=== PATIENT | male | born 1990 | race Hispanic/Latino ===

== ENCOUNTER 2016-11-28 21:08 | Emergency (ER) | payer OTHER ==
[~2016-11-28] VITALS: Ht 167.6 cm; Wt 99.8 kg
[2016-11-28] MEDS ORDERED: ADVI200C PO (21:27)
[2016-11-28] MEDS ORDERED: KLON0.5T PO (22:35)
[2016-11-28 22:46] VITALS: BP 130/82
== END 2016-11-28 23:00 | disposition home or self-care (01) ==
LOC: EDBD 21:08 → M ED 22:24
DX: F41.9 Anxiety disorder, unspecified (principal)

== ENCOUNTER 2016-12-12 09:34 | Emergency (ER) | payer OTHER ==
[~2016-12-12] VITALS: Ht 167.6 cm; Wt 102.1 kg
[~2016-12-12 09:34] MED LIST: ADVI200C PO; KLON0.5T PO
[2016-12-12] MEDS ORDERED: NAPR500T2 PO (09:42)
[2016-12-12] MEDS ORDERED: KETOROLAC 30 MG/ML VIAL (J1885) IV ONE (10:30)
[2016-12-12] MEDS ORDERED: GASTROGRAFIN SOLUTION 30ML (Q9963) As Ordered ONE (10:34)
[2016-12-12 10:39] LABS: BASO # 0.1 K/mm3 (0.0-0.2); BASO % 0.9 % (0.0-1.0); EOS # 0.1 K/mm3 (0.0-0.50); EOS % 1.6 % (0.0-3.0); LARGE UNSTAINED CELL # 0.1 K/mm3 (0.0-0.4); LARGE UNSTAINED CELL % 0.9 % (0.0-4.0); LYMPH # 2.2 K/mm3 (1.5-6.5); LYMPH % 29.9 % (24.0-44.0); MEAN CORPUSCULAR HEMOGLOBIN 30.6 pg (27.0-33.0); MEAN CORPUSCULAR HGB CONC 34.5 g/dl (32.0-36.5); MEAN CORPUSCULAR VOLUME 88.9 fl (80.0-96.0); MONO # 0.3 K/mm3 (0.0-0.8); MONO % 4.3 % (0.0-5.0); NEUTROPHILS # 4.5 K/mm3 (1.8-7.7); NEUTROPHILS % 62.4 % (36.0-66.0); PLATELET COUNT, AUTOMATED 167 k/mm3 (150-450); RED CELL DISTRIBUTION WIDTH 12.8 % (11.5-14.5); WHITE BLOOD COUNT 7.2 K/mm3 (4.0-10.0)
[2016-12-12] MEDS ORDERED: GASTROGRAFIN SOLUTION 30ML PO ONE (10:45)
[2016-12-12 10:57] LABS: ANION GAP 8 MEQ/L (8-16); BLOOD UREA NITROGEN 14 MG/DL (7-18); CALCIUM LEVEL 9.1 MG/DL (8.5-10.1); CARBON DIOXIDE LEVEL 27 MEQ/L (21-32); CHLORIDE LEVEL 105 MEQ/L (98-107); CREATININE FOR GFR 0.91 MG/DL (0.70-1.30); GLOMERULAR FILTRATION RATE > 60.0 (>60); GLUCOSE, FASTING 95 MG/DL (70-105); SODIUM LEVEL 140 MEQ/L (136-145)
[2016-12-12] MEDS ORDERED: GASTROGRAFIN SOLUTION 30ML (Q9963) PO ONE (11:15)
[2016-12-12] MEDS ORDERED: ISOVUE-370 76% 100ML VIAL (Q9967) As Ordered ONE (11:59)
--- NOTE | 2016-12-12 12:27 | REP ---
Clinical: Right inguinal hernia. Technique: Axial contrast enhanced images from the lung bases to the pubic symphysis using oral and 100 ml Isovue 370 intravenous contrast material with coronal and sagittal re-formations. Findings: Lung bases are clear. Visualized heart and pericardium are normal. Liver, spleen, pancreas, gallbladder, bilateral adrenal glands and kidneys are normal. The enteric system is without obstruction or acute inflammatory process normal terminal ileum and appendix identified in the right lower quadrant. Pelvis demonstrates normal bladder and prostate/seminal vesicles. A 1 cm fat containing periumbilical hernia is identified. No inguinal hernia noted. No ascites. No free air. No intraperitoneal or retroperitoneal adenopathy. No mass lesion. Vascular structures are normal. Musculoskeletal structures are intact. Impression: 1 cm fat containing periumbilical hernia. No inguinal hernia identified. No acute intra-abdominal or pelvic pathology appreciated. Signed by Terrance Banda MD 12/12/2016 12:18 P
[2016-12-12 13:51] VITALS: BP 127/76
== END 2016-12-12 13:53 | disposition home or self-care (01) ==
LOC: EDBD 09:34 → M ED 11:05
DX: K42.9 Umbilical hernia without obstruction or gangrene (principal); F41.9 Anxiety disorder, unspecified
CPT/HCPCS: 74177; 80048; 83605; 85025; 96374; 99283; J1885; Q9963; Q9967

== ENCOUNTER 2016-12-29 23:17 | Emergency (ER) | payer OTHER ==
[~2016-12-29] VITALS: Ht 167.6 cm; Wt 99.8 kg
[2016-12-29 23:17] VITALS: BP 141/96
[~2016-12-29 23:17] MED LIST changes: +NAPR500T2 PO
[2016-12-30] MEDS ORDERED: NS 1,000 ML IV ONE (00:15)
[2016-12-30] MEDS ORDERED: GI COCKTAIL 50ML BTL(HYOSCYAMINE/MAALOX/LIDOCAINE VISCOUS)(1:3:1) PO ONE (00:15)
[2016-12-30 00:34] LABS: BASO # 0.1 K/mm3 (0.0-0.2); BASO % 0.6 % (0.0-1.0); EOS # 0.2 K/mm3 (0.0-0.50); EOS % 2.3 % (0.0-3.0); LARGE UNSTAINED CELL # 0.2 K/mm3 (0.0-0.4); LARGE UNSTAINED CELL % 1.8 % (0.0-4.0); LYMPH # 3.5 K/mm3 (1.5-6.5); LYMPH % 36.8 % (24.0-44.0); MEAN CORPUSCULAR HEMOGLOBIN 30.8 pg (27.0-33.0); MEAN CORPUSCULAR HGB CONC 34.8 g/dl (32.0-36.5); MEAN CORPUSCULAR VOLUME 88.5 fl (80.0-96.0); MONO # 0.5 K/mm3 (0.0-0.8); MONO % 4.8 % (0.0-5.0); NEUTROPHILS % 53.8 % (36.0-66.0); PLATELET COUNT, AUTOMATED 169 k/mm3 (150-450); RED CELL DISTRIBUTION WIDTH 12.5 % (11.5-14.5); WHITE BLOOD COUNT 9.4 K/mm3 (4.0-10.0)
[2016-12-30 01:03] LABS: ALBUMIN/GLOBULIN RATIO 1.29 (1.00-1.93); ALKALINE PHOSPHATASE 80 U/L (45-117); ALT/SGPT 70 U/L (12-78); ANION GAP 5 MEQ/L (8-16); AST/SGOT 22 U/L (15-37); BILIRUBIN,DIRECT 0.1 MG/DL (0.0-0.2); BILIRUBIN,TOTAL 0.4 MG/DL (0.2-1.0); BLOOD UREA NITROGEN 17 MG/DL (7-18); CALCIUM LEVEL 8.9 MG/DL (8.5-10.1); CARBON DIOXIDE LEVEL 27 MEQ/L (21-32); CHLORIDE LEVEL 106 MEQ/L (98-107); CREATININE FOR GFR 0.96 MG/DL (0.70-1.30); GLOMERULAR FILTRATION RATE > 60.0 (>60); GLUCOSE, FASTING 95 MG/DL (70-105); SODIUM LEVEL 138 MEQ/L (136-145); TOTAL PROTEIN 7.1 GM/DL (6.4-8.2)
[2016-12-30] MEDS ORDERED: CARA1TAB2 PO (02:25)
== END 2016-12-30 02:39 | disposition home or self-care (01) ==
LOC: M ED 12-30 00:32
DX: R10.13 Epigastric pain (principal); Z79.899 Other long term (current) drug therapy

== ENCOUNTER → 2017-01-06 | Outpatient (CLI) | payer OTHER ==
[~2017-01-06] MED LIST changes: +CARA1TAB2 PO
--- NOTE | 2017-01-07 05:26 | REP ---
Clinical: Right groin pain. Technique: Real time corral scale ultrasound examination using linear high frequency transducer. Findings: Ultrasound examination of the bilateral groin during normal respiration and Valsalva is unremarkable and without evidence for hernia. No obvious adenopathy. Impression: Normal examination. No evidence for hernia. Signed by Terrance Banda MD 01/07/2017 05:17 A
== END ==
LOC: M RAD 09:38
PROVIDERS: ATTEND Surgery
DX: R10.31 Right lower quadrant pain (principal)